=== PATIENT | male | born 1970 | race Caucasian/White ===

== ENCOUNTER 2022-01-09 18:02 | Emergency (ER) | payer OTHER ==
[2022-01-09] MEDS ORDERED: Sodium Chloride 0.9% 1,000 ML IV ONE ×2 (18:21→18:22)
[2022-01-09 18:48] LABS: CARBON DIOXIDE,CO2 24.7 mmol/L (21.0-32.0); POTASSIUM,K 3.7 mmol/L (3.5-5.1)
== END 2022-01-09 20:02 | disposition home or self-care (01) ==
LOC: MW.ED 18:02
DX: E86.0 Dehydration (principal); Z88.8 Allergy status to other drugs, medicaments and biological substances
CPT/HCPCS: 36415; 80053; 82550; 83735; 84484; 85025; 93005; 96360; 99284; J7030; 93010; 99283